=== PATIENT | female | born 1965 | race Caucasian/White ===

== ENCOUNTER 2020-12-23 10:26 | Outpatient (CLI) | payer MEDICARE | END 2020-12-23 10:27 | disposition home or self-care (01) | LOC: BURRAD 10:26 | DX: M75.01 Adhesive capsulitis of right shoulder (principal); M25.511 Pain in right shoulder; M43.16 Spondylolisthesis, lumbar region; M19.011 Primary osteoarthritis, right shoulder; M47.812 Spondylosis without myelopathy or radiculopathy, cervical region | CPT/HCPCS: 72040; 72100 ==

== ENCOUNTER 2022-07-16 21:44 | Emergency (ER) | payer MEDICARE, OTHER ==
[2022-07-16 23:10] LABS: Hemoglobin 10.9 g/dL (12.0-16.0); Mean Corpuscular HGB CONC 30.6 g/dL (32.0-36.0); Mean Corpuscular Hemoglobin 22.7 pg (27.0-31.0); Mean Corpuscular Volume 74.2 fl (78.0-98.0); Mean Platelet Volume 8.8 fL (7.4-10.4); Platelet Count 97 10x3/uL (130-400); RBC Distribution Width 16.6 % (11.5-14.5); Red Blood Cell (RBC) Count 4.79 mill/uL (4.20-5.40); White Blood Cell (WBC) Count 4.9 10x3/uL (4.8-10.8)
[2022-07-16 23:16] LABS: ALT (SGPT) 83 U/L (8-55); AST (SGOT) 111 U/L (5-34); Albumin 3.8 g/dL (3.5-5.0); Alkaline Phosphatase 272 U/L (40-110); Anion Gap 16 mmol/L (10-20); BUN (Urea Nitrogen) 11 mg/dL (9.8-20.1); Bilirubin, Total 4.5 mg/dL (0.2-1.2); Calc. Creatinine Clearance 0 mL/min (70-130); Calcium 9.2 mg/dL (7.8-10.44); Carbon Dioxide 23 mmol/L (22-29); Chloride 101 mmol/L (98-107); Estimated GFR 83; Glucose 258 mg/dL (70-105); Lipase 17 U/L (8-78); Potassium 3.7 mmol/L (3.5-5.1); Protein, Total 6.8 g/dL (6.0-8.3); Sodium 136 mmol/L (136-145)
[2022-07-16 23:51] LABS: Bilirubin Small (Negative); Blood, Urine Negative (Negative); Clarity Clear (Clear); Glucose, Urine (Dipstick) 100 mg/dL (Negative); Ketone, Urine Trace mg/dL (Negative); Leukocyte Small (Negative); Nitrite Negative (Negative); Protein, Urine (Dipstick) Negative (Neg-Trace)
[2022-07-16 23:53] LABS: Eosinophils 1 % (0-10); Lymphocytes 15 % (21-51); MDiff Complete? YES; Monocytes 9 % (0-10); Neutrophil 75 % (42-75)
[2022-07-16 23:58] LABS: RBC/HPF None Seen HPF (0-3)
[2022-07-16 23:59] LABS: Bacteria/HPF 1+ HPF (None Seen); Mucous/LPF None Seen LPF (<2+); Squamous Epithelial 0-3 HPF (0-3)
[2022-07-17] MEDS ORDERED: metroNIDAZOLE 500 MG/100 ML BAG ONE (00:53)
[2022-07-17] MEDS ORDERED: cefTRIAXone\\ROCEPHIN 1 GM VIAL ONE (00:53)
== END 2022-07-17 03:20 | disposition short-term general hospital (02) ==
LOC: BURERS 21:44
DX: K81.0 Acute cholecystitis (principal); E11.9 Type 2 diabetes mellitus without complications; Z79.4 Long term (current) use of insulin; Z79.84 Long term (current) use of oral hypoglycemic drugs
CPT/HCPCS: 74176; 80053; 81003; 81015; 83605; 83690; 85025; 96374; 96375